=== PATIENT | male | born 1940 | race Caucasian/White ===

== ENCOUNTER 2017-10-07 20:30 | Outpatient (CLI) | payer MEDICARE | END 2017-10-07 20:31 | disposition home or self-care (01) | LOC: SLEEPLAB 20:30 | PROVIDERS: ATTEND Family Medicine | DX: G47.33 Obstructive sleep apnea (adult) (pediatric) (principal); I25.10 Atherosclerotic heart disease of native coronary artery without angina pectoris; I10 Essential (primary) hypertension | CPT/HCPCS: 95811 ==

== ENCOUNTER 2018-01-22 23:33 | Emergency (ER) | payer MEDICARE ==
[2018-01-22 23:54] LABS: #Basophils 0.1 thou/uL (0.0-0.2); #Eosinphils 0.3 thou/uL (0.0-0.7); #Lymphocytes 3.4 thou/uL (1.20-3.40); #Monocytes 1.3 thou/uL (0.11-0.59); #Neutrophils 3.8 thou/uL (1.40-6.50); %Basophils 1.2 % (0.0-1.0); %Eosinophils 2.8 % (0.0-10.0); %Lymphocytes 38.1 % (21.0-51.0); %Monocytes 14.5 % (0.0-10.0); %Neutrophils 43.4 % (42.0-75.0); Hemoglobin 16.1 g/dL (14.0-18.0); Mean Corpuscular HGB CONC 35.4 g/dL (32.0-36.0); Mean Corpuscular Hemoglobin 34.2 pg (27.0-31.0); Mean Corpuscular Volume 96.6 fl (80.0-94.0); Mean Platelet Volume 7.5 fL (7.4-10.4); Platelet Count 170 thou/uL (130-400); RBC Distribution Width 11.6 % (11.5-14.5); Red Blood Cell (RBC) Count 4.73 mill/uL (4.70-6.10); White Blood Cell (WBC) Count 8.9 thou/uL (4.8-10.8)
[2018-01-23] MEDS ORDERED: Morphine 4 MG/ML VIAL ONE (00:13)
[2018-01-23 00:20] LABS: ALT (SGPT) 23 U/L (8-55); AST (SGOT) 27 U/L (5-34); Albumin 4.4 g/dL (3.4-4.8); Alkaline Phosphatase 64 U/L (40-150); Anion Gap 18 mmol/L (10-20); BUN (Urea Nitrogen) 37 mg/dL (8.4-25.7); CK (CPK) 306 U/L (30-200); Calc. Creatinine Clearance 0 mL/min (70-130); Calcium 9.8 mg/dL (7.8-10.44); Carbon Dioxide 23 mmol/L (23-31); Chloride 105 mmol/L (98-107); Estimated GFR-MDRD 41; Globulin 3.2 g/dL (2.4-3.5); Glucose 111 mg/dL (83-110); Protein, Total 7.6 g/dL (5.8-8.1); Sodium 142 mmol/L (136-145)
[2018-01-23 00:44] LABS: PTT 24.7 SEC (22.9-36.1); Prothrombin Time 12.8 SEC (12.0-14.7)
[2018-01-23 00:52] LABS: Troponin I Less than 0.010 ng/mL (< 0.028)
[2018-01-23 01:11] LABS: CKMB 7.7 ng/mL (0-6.6)
[2018-01-23] MEDS ORDERED: Lidocaine 2% Viscous Solution 10 ML, Aluminum & Magnesium Hydroxide 20 ML, Donnatal Eli... SSW SCH ×3 (02:00)
[2018-01-23] MEDS ORDERED: Metoclopramide HCl 10 MG/2 ML VIAL ONE (02:01)
--- NOTE | 2018-01-23 10:49 | CT ---
PRELIMINARY REPORT/[facility]/EMERGENTY AFTER-HOURS PROCEDURE CT Angiography Chest With Intravenous Contrast CLINICAL HISTORY: 77 years old, male; Chest pain; Abd pain; Epigastric pain that started earlier today; ER 5; also SOB, increased pain when lying down and after eating. tender to the RUQ and LUQ TECHNIQUE: Axial computed tomographic angiography images of the chest with intravenous contrast using pulmonary embolism protocol. Coronal reformatted images were created and reviewed. COMPARISON: No relevant prior studies available. FINDINGS: Pulmonary arteries: No evidence of pulmonary embolism. Aorta: 3.7 cm aneurysmal dilatation of the ascending thoracic aorta. No aortic dissection. Lungs: No alveolar infiltrate. Right basilar and inferior lingular linear parenchymal scarring or sub segmental collapse / atelectasis. No mass. Pleural space: No pleural fluid collection. No pneumothorax. Heart: No pericardial effusion. No evidence of RV dysfunction. Bones/joints: Prior surgery of the lower cervical spine. Prior median sternotomy. Spinal degenerative changes. No acute fracture. No dislocation. Soft tissues: Unremarkable. Lymph nodes: No pathologically enlarged lymph nodes. IMPRESSION: 1. 3.7 cm aneurysmal dilatation of the ascending thoracic aorta. No aortic dissection. 2. No evidence of pulmonary embolism. 3. No alveolar infiltrate. 4. Right basilar and inferior lingular linear parenchymal scarring or subsegmental collapse/atelectas is. EXAM: CT Angiography Abdomen With Intravenous Contrast CLINICAL HISTORY: 77 years old, male; Chest pain; Abd pain; Epigastric pain that started earlier today; ER 5; also SOB, increased pain when lying down and after eating. tender to the RUQ and LUQ TECHNIQUE: Axial computed tomographic angiography images of the abdomen with intravenous contrast. Coronal refor matted images were created and reviewed. COMPARISON: No relevant prior studies available. FINDINGS: Aorta: The abdominal aorta is normal in caliber without aneurysm or dissection. Celiac trunk and mesenteric arteries: No acute findings. No occlusion or significant stenosis. Renal arteries: No acute findings. No occlusion or significant stenosis. Lung bases: Unremarkable. No mass. No consolidation. Liver: Unremarkable. No mass. Gallbladder and bile ducts: Cholelithiasis, otherwise normal gallbladder. No ductal dilation. Pancreas: Pancreatic fatty infiltration. No ductal dilation. Spleen: Unremarkable. No splenomegaly. Adrenals: Unremarkable. No mass. Kidneys and ureters: No hydronephrosis. Bilateral nonobstructing calcified renal stones. Bilateral re nal cysts. Stomach and bowel: Scattered colon diverticuli without evidence of diverticulitis. No obstruction. Appendix: Normal appendix. Intraperitoneal space: Unremarkable. No significant fluid collection. No free air. Bones/joints: Spinal degenerative changes. No acute fracture. No dislocation. Soft tissues: Unremarkable. No mass. Lymph nodes: Unremarkable. No enlarged lymph nodes. IMPRESSION: 1. The abdominal aorta is normal in caliber without aneurysm or dissection. 2. No hydronephrosis. Bilateral nonobstructing calcified renal stones. 3. Cholelithiasis, otherwise normal gallbladder. 4. Scattered colon diverticuli without evidence of diverticulitis. Thank you for allowing us to participate in the care of your patient. Dictated and Authenticated by: Higinio Posada MD 01/23/2018 1:16 AM Central Time ([place] & [place]) FINAL REPORT EMERGENCY AFTER HOURS STUDY CT ARTERIOGRAM CHEST WITH IV CONTRAST AND 3D MIP IMAGING CT ARTERIOGRAM ABDOMEN WITH IV CONTRAST AND 3D MIP IMAGING: Date: 01/23/18 Time: 0035 hours HISTORY: Chest and abdomen pain with radiation to back. FINDINGS: Findings agree with the preliminary report by Court[facility]. No evidence of aortic dissection. Ascending aorta is upper limits of normal in caliber. No CT evidence of pulmonary embolus. Cholelithiasis. Nonobstru cting bilateral renal calculi. Nonspecific low density nodule left thyroid lobe. POS: [facility]
--- NOTE | 2018-01-23 10:51 | RAD ---
CHEST 1 VIEW: Date: 01/22/18 HISTORY: Chest pain. Dyspnea. COMPARISON: 03/03/06. FINDINGS: Cardiac silhouette is magnified and upper limits of normal in size. Pulmonary vasculature is unremark able. Mediastinum is midline with postoperative changes and aortic calcification. No lobar consolidat ion or evidence of pneumothorax. Degenerative changes of the shoulders. shelter monitor leads overlie the chest. IMPRESSION: 1. Atherosclerosis. 2. No active cardiopulmonary abnormalities are otherwise demonstrated. POS: [facility]
== END 2018-01-23 03:20 | disposition home or self-care (01) ==
LOC: ERS 23:33
DX: K31.84 Gastroparesis (principal); I10 Essential (primary) hypertension; E78.00 Pure hypercholesterolemia, unspecified
CPT/HCPCS: 36415; 71045; 71275; 80053; 82550; 82553; 83690; 84484; 85025; 85610; 85730; 86850; 86900; 86901; 93005; 96361; 96374; 96375; J2270; J2765

== ENCOUNTER 2018-02-22 09:54 | Outpatient (CLI) | payer MEDICARE ==
[2018-02-22 12:00] LABS: #Basophils 0.1 thou/uL (0.0-0.2); #Eosinphils 0.4 thou/uL (0.0-0.7); #Lymphocytes 1.7 thou/uL (1.20-3.40); #Monocytes 0.9 thou/uL (0.11-0.59); %Eosinophils 5.3 % (0.0-10.0); %Lymphocytes 24.2 % (21.0-51.0); %Monocytes 12.2 % (0.0-10.0); %Neutrophils 57.2 % (42.0-75.0); Hemoglobin 14.3 g/dL (14.0-18.0); Mean Corpuscular HGB CONC 34.6 g/dL (32.0-36.0); Mean Corpuscular Hemoglobin 34.4 pg (27.0-31.0); Mean Corpuscular Volume 99.3 fl (80.0-94.0); Mean Platelet Volume 8.5 fL (7.4-10.4); Platelet Count 165 thou/uL (130-400); RBC Distribution Width 11.8 % (11.5-14.5); Red Blood Cell (RBC) Count 4.17 mill/uL (4.70-6.10)
[2018-02-22 12:23] LABS: ALT (SGPT) 17 U/L (8-55); AST (SGOT) 15 U/L (5-34); Albumin 3.8 g/dL (3.4-4.8); Alkaline Phosphatase 67 U/L (40-150); Anion Gap 9 mmol/L (10-20); BUN (Urea Nitrogen) 21 mg/dL (8.4-25.7); Bilirubin, Direct 0.3 mg/dL (0.1-0.3); Bilirubin, Total 0.9 mg/dL (0.2-1.2); Calc. Creatinine Clearance 0 mL/min (70-130); Calcium 8.9 mg/dL (7.8-10.44); Carbon Dioxide 26 mmol/L (23-31); Chloride 108 mmol/L (98-107); Estimated GFR-MDRD 49; Glucose 90 mg/dL (83-110); Potassium 4.2 mmol/L (3.5-5.1); Protein, Total 6.8 g/dL (5.8-8.1); Sodium 139 mmol/L (136-145)
--- NOTE | 2018-02-23 14:30 | EKG ---
Test Reason : Blood Pressure : / mmHG Vent. 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 Arlette TURCIOS ([id number]) on 02/23/2018 2:30:34 PM Referred By: SAMANTHA Confirmed By:DR. Arlette TURCIOS
== END 2018-02-22 09:55 | disposition home or self-care (01) ==
LOC: LABBT 09:54
PROVIDERS: ATTEND Surgery
DX: Z01.818 Encounter for other preprocedural examination (principal); K80.20 Calculus of gallbladder without cholecystitis without obstruction; I44.0 Atrioventricular block, first degree; R94.31 Abnormal electrocardiogram [ECG] [EKG]; I25.2 Old myocardial infarction
CPT/HCPCS: 80053; 80076; 85025; 93005; 93010

== ENCOUNTER 2018-02-24 06:01 | Day surgery (SDC) | payer MEDICARE ==
[2018-02-22 10:21] VITALS: BMI 27.4
[2018-02-24] MEDS ORDERED: HYDROmorphone 0.5 MG/0.5 ML SYRINGE ONE (06:35)
[2018-02-24] MEDS ORDERED: Fentanyl 100 MCG/2 ML VIAL ONE (06:35)
[2018-02-24] MEDS ORDERED: Metoclopramide HCl 10 MG/2 ML VIAL ONE ×2 (06:36→14:40)
[2018-02-24] MEDS ORDERED: Ondansetron HCl/PF 4 MG/2 ML Vial ONE ×2 (06:36→14:40)
[2018-02-24] MEDS ORDERED: Bupivacaine/Epinephrine 0.25% 30 ML VIAL ONE (06:44)
[2018-02-24] MEDS ORDERED: cefOXitin 2 GM, Syringe 1 ML in Sterile Water 10 ML SLOW IVP SCH (07:00)
--- NOTE | 2018-02-24 09:28 | OP ---
PREOPERATIVE DIAGNOSIS: Symptomatic cholelithiasis. SURGEON: Mekhi Sutton M.D. PROCEDURE PERFORMED: Laparoscopic cholecystectomy. INDICATIONS: A 77-year-old male who has been having episodic right upper quadrant pain radiating to the back associated with nausea. Ultrasound showed cholelithiasis. FINDINGS: He had severe inflammation of the gallbladder. The gallbladder was necrotic. There was a cute and chronic inflammation. PROCEDURE IN DETAIL: After informed consent was obtained, the patient was taken to the operating brynn m and given general endotracheal anesthesia. He was placed in the supine position. His abdomen was prepped and draped in usual fashion. Local anesthesia infiltrated subcutaneously and deep. A subumb ilical incision was performed. The subcu divided sharply. Fascia grasped and two stay sutures of 0 Vicryl placed to either side of midline. Midline incised. Digital palpation revealed no local adhes ions. A blunt 10-12 mm trocar inserted. Pneumoperitoneum was created to a pressure of 15 mmHg. Zer o-degree laparoscope inserted under direct vision, three 5 mm ports placed subcostally. The gallblad emerald was encased in omentum and appeared to have been inflamed and is able to reflect some of that ome ntum back to see the top of the gallbladder. It was very firm and thickened, could not be grasped wi th a regular grasper and had to use the tooth grabber to grab it. Then very carefully this inflamed omentum was taken down utilizing blunt and sharp dissection with electrocautery. Eventually, was abl e to dissect out the gallbladder completely including the duct and artery. However, the cystic duct was necrotic and it just completely broke just reflecting the gallbladder. I was able to dissect out the cystic duct distally to put two clips on it. The artery was also dissected out and triply ligat ed with Hemoclips and divided. The gallbladder was removed from its fossa utilizing electrocautery. It was placed in an endosac and removed from the abdomen in the Endosac. Hemostasis achieved with e lectrocautery as well as Mimi powder. Trocars and retractors removed. The fascia closed with 0 Vi cryl suture. The skin closed with interrupted 4-0 Rapide. Dermabond applied. The patient tolerated the procedure well and was transferred to recovery in good condition. Sponge and needle count verif ied correct x2.
[2018-02-24] MEDS ORDERED: ePHEDrine/0.9% NaCl/PF SYRINGE 50 mg/10 ml ONE (14:40)
[2018-02-24] MEDS ORDERED: Lidocaine 1% PF 5 ML VIAL ONE (14:40)
[2018-02-24] MEDS ORDERED: Succinylcholine Chloride 20 MG/ML 10 ml SYRINGE FS ONE (14:40)
[2018-02-24] MEDS ORDERED: Ketorolac Tromethamine 30 MG/ML VIAL ONE (14:40)
[2018-02-24] MEDS ORDERED: PROPOFOL 200 MG/20 ML VIAL ONE (14:40)
[2018-02-24] MEDS ORDERED: Glycopyrrolate 0.2 MG/ML 5 ML SYRINGE ONE (14:40)
[2018-02-24] MEDS ORDERED: Dexamethasone 20 MG/5 ML VIAL ONE (14:40)
== END 2018-02-24 13:30 | disposition home or self-care (01) ==
LOC: SDC 06:01
PROVIDERS: ATTEND Surgery
PROC: 0FT44ZZ Resection of Gallbladder, Percutaneous Endoscopic Approach (ICD-10-PCS; principal; 2018-02-24)
DX: K80.12 Calculus of gallbladder with acute and chronic cholecystitis without obstruction (principal); E78.5 Hyperlipidemia, unspecified; I10 Essential (primary) hypertension; F41.9 Anxiety disorder, unspecified; M19.90 Unspecified osteoarthritis, unspecified site; G25.81 Restless legs syndrome; G47.33 Obstructive sleep apnea (adult) (pediatric); Z87.891 Personal history of nicotine dependence; Z79.82 Long term (current) use of aspirin; Z79.1 Long term (current) use of non-steroidal anti-inflammatories (NSAID); Z79.899 Other long term (current) drug therapy; Z99.89 Dependence on other enabling machines and devices
CPT/HCPCS: 88304; A4216; J0131; J0694; J1100; J1170; J1885; J2001; J2405; J2704; J2765; J3010

== ENCOUNTER 2018-11-25 07:20 | Day surgery (SDC) | payer MEDICARE ==
[2018-11-24 15:54] VITALS: BMI 28.3
[~2018-11-25 07:20] MED LIST: Fluorouracil 100 MG, Enoxaparin Sodium 25 MG, EPINEPHrine 0.3 MG in Ophthalmic Irrigati... IVPB SCH
[2018-11-25] MEDS ORDERED: Phenylephrine 2.5% Ophth Soln 5 ML BOT ONE (07:34)
[2018-11-25] MEDS ORDERED: Cyclopentolate 1% Opth Drop 2 ML BOT ONE (07:35)
[2018-11-25] MEDS ORDERED: Midazolam HCl 2 mg/2 ml Vial ONE (08:06)
[2018-11-25] MEDS ORDERED: Fentanyl 100 MCG/2 ML VIAL ONE (08:06)
[2018-11-25] MEDS ORDERED: Lidocaine 1% PF 5 ML VIAL ONE (13:11)
[2018-11-25] MEDS ORDERED: Maxitrol 0.1% Opth Oint 3.5 GM TUBE ONE (13:11)
[2018-11-25] MEDS ORDERED: Bupivacaine 0.75% 10 ML AMP ONE (13:11)
[2018-11-25] MEDS ORDERED: Triamcinolone 40 MG/ML VIAL ONE (13:11)
[2018-11-25] MEDS ORDERED: Lidocaine 4% PF 5 ML AMP ONE (13:11)
[2018-11-25] MEDS ORDERED: PROPOFOL 200 MG/20 ML VIAL ONE (13:11)
[2018-11-25] MEDS ORDERED: CEFAZOLIN 1 GM VIAL ONE (13:11)
--- NOTE | 2018-11-25 17:11 | OP ---
DATE OF PROCEDURE: 11/25/2018 PREOPERATIVE DIAGNOSIS: Macular hole, left eye. POSTOPERATIVE DIAGNOSIS: Macular hole, left eye. PROCEDURES PERFORMED: Pars plana vitrectomy and membrane peel, left eye. ANESTHESIA: Local with monitored anesthesia care. DESCRIPTION OF PROCEDURE: The patient was identified in the preoperative holding area. Appropriate informed consent for the planned surgical procedure on the left eye had been obtained. The patient was transported to the operative suite, where appropriate cardiopulmonary monitoring was established. Local anesthesia was obtained using retrobulbar modified Van Lint lid block using 50:50 mixture of 4% lidocaine and 0.75% bupivacaine. The patient was prepped and draped in usual sterile manner for ophthalmic surgery on the left eye. Lid speculum was placed in left eye. A 25-gauge trocar was placed through the conjunctiva and sclera superotemporally, inferotemporally, and supranasally. Infusion line was placed inferotemporally. Light pipe vitreous cutter was inserted into the eye. Core vitrectomy was performed. Posterior hyaloid face was elevated and peeled across the macula using was relieved by this peeling action. Indirect ophthalmoscopy was used to exam the retina 360 degrees. No holes, breaks, or tears were identified. Complete air-fluid exchange was performed with 10 minutes being left for fluid to drain posteriorly. 28% sulfur hexafluoride gas was infused into the eye. Trocars were removed. The eye was noted to retain pressure well. Retrobulbar Kenalog and subconjunctival Ancef were placed. Atropine antibiotic ointment was placed and the eye was patched and shielded. The patient was taken to the postoperative recovery unit in good condition, having suffered no immediate perioperative complications. The patient was instructed to keep the patch and shield on, avoid lifting or bending, avoid flat and back positioning. Followup in the morning with Dr. Jerez. Job ID: [id number]
== END 2018-11-25 11:11 | disposition home or self-care (01) ==
LOC: SDC 07:20
PROVIDERS: ATTEND Ophthalmology Retina Specialist
PROC: 08T53ZZ Resection of Left Vitreous, Percutaneous Approach (ICD-10-PCS; principal; 2018-11-25)
PROC: 08NF3ZZ Release Left Retina, Percutaneous Approach (ICD-10-PCS; 2018-11-25)
DX: H35.342 Macular cyst, hole, or pseudohole, left eye (principal); Z79.1 Long term (current) use of non-steroidal anti-inflammatories (NSAID); Z79.82 Long term (current) use of aspirin; Z79.899 Other long term (current) drug therapy; Z95.5 Presence of coronary angioplasty implant and graft
CPT/HCPCS: 67025; J0171; J0690; J1650; J2001; J2250; J2704; J3010; J3301; J3490; J9190

== ENCOUNTER 2019-05-19 11:12 | Emergency (ER) | payer MEDICARE ==
[2019-05-19] MEDS ORDERED: Morphine 4 MG/ML VIAL ONE (12:06)
[2019-05-19 12:29] LABS: #Basophils 0.1 thou/uL (0.0-0.2); #Eosinphils 0.3 thou/uL (0.0-0.7); #Lymphocytes 2.3 thou/uL (1.20-3.40); #Monocytes 1.1 thou/uL (0.11-0.59); #Neutrophils 7.4 thou/uL (1.40-6.50); %Basophils 0.6 % (0.0-1.0); %Eosinophils 2.8 % (0.0-10.0); %Lymphocytes 20.5 % (21.0-51.0); %Neutrophils 66.1 % (42.0-75.0); Hemoglobin 15.8 g/dL (14.0-18.0); Mean Corpuscular HGB CONC 33.3 g/dL (32.0-36.0); Mean Corpuscular Hemoglobin 33.1 pg (27.0-31.0); Mean Corpuscular Volume 99.2 fL (78.0-98.0); Mean Platelet Volume 8.2 fL (7.4-10.4); Platelet Count 216 thou/uL (130-400); RBC Distribution Width 11.8 % (11.5-14.5); Red Blood Cell (RBC) Count 4.78 mill/uL (4.70-6.10); White Blood Cell (WBC) Count 11.2 thou/uL (4.8-10.8)
[2019-05-19 12:50] LABS: ALT (SGPT) 16 U/L (8-55); AST (SGOT) 13 U/L (5-34); Albumin 4.1 g/dL (3.4-4.8); Alkaline Phosphatase 71 U/L (40-150); Anion Gap 12 mmol/L (10-20); BUN (Urea Nitrogen) 27 mg/dL (8.4-25.7); Calc. Creatinine Clearance 0 mL/min (70-130); Calcium 9.9 mg/dL (7.8-10.44); Carbon Dioxide 28 mmol/L (23-31); Chloride 102 mmol/L (98-107); Estimated GFR-MDRD 58; Globulin 3.2 g/dL (2.4-3.5); Glucose 124 mg/dL (83-110); Lipase 16 U/L (8-78); Protein, Total 7.3 g/dL (5.8-8.1); Sodium 138 mmol/L (136-145)
--- NOTE | 2019-05-19 13:26 | CT ---
Exam: Chest, abdomen, and pelvic CT scan with IV contrast: HISTORY: Injury from trauma There are some increased linear and interstitial markings in the posterior inferior lung bases probab ly representing some chronic interstitial disease as well as some dependent positioning. No evidence of pneumothorax or pleural effusion. No pericardial effusion. No evidence for an overt acute rib fracture. Status post cholecystectomy without significant ductal dilatation. Pancreas, spleen, adrenal glands a re unremarkable. Very small hiatal hernia. Numerous bilateral renal calculi. Bilateral renal cysts. Nonobstructing 0.3 cm diameter right ureteral calculus overlying the right sacral alar region at appr oximately the level of S1. Somewhat fatty left spermatic cord. Urinary bladder appears unremarkable. No evidence for large or small bowel obstruction. No CT evidence for acute appendicitis . Minimal sigmoid colon diverticulosis without acute diverticulitis. IMPRESSION: Nonobstructing 0.3 cm right ureteral calculus at approximately the S1 level. Numerous bilateral nonobstructing renal calculi. Bilateral renal cysts. Small hiatal hernia. Multilevel lumbar spinal stenosis. Minimal posterior pleural thickening as well as some interstitial and linear parenchymal changes in t he posterior lower lung zones, evidence for chronic change. Other findings as above.
[2019-05-19 14:10] LABS: Bilirubin Negative (Negative); Blood, Urine Negative (Negative); Clarity Clear (Clear); Glucose, Urine (Dipstick) Normal (Negative); Leukocyte Negative Leu/uL (Negative); Nitrite Negative (Negative); Protein, Urine (Dipstick) 10 mg/dL (Neg-Trace); Urobilinogen Normal mg/dL (Less than 2)
== END 2019-05-19 14:35 | disposition home or self-care (01) ==
LOC: ERS 11:12
DX: N20.1 Calculus of ureter (principal); E78.5 Hyperlipidemia, unspecified; I10 Essential (primary) hypertension; Z79.899 Other long term (current) drug therapy
CPT/HCPCS: 71260; 74177; 80053; 81003; 83690; 85025; 87086; 96374; J2270

== ENCOUNTER 2020-03-27 06:39 | Outpatient (CLI) | payer MEDICARE, OTHER ==
[2020-03-28 18:04] LABS: SARS-CoV-2 MS2 Positive; SARS-CoV-2 N Gene Negative; SARS-CoV-2 S Gene Negative; SARS-CoV-2 orf1ab Negative
== END 2020-03-27 06:40 | disposition home or self-care (01) ==
LOC: LABBT 06:39
PROVIDERS: ATTEND Ophthalmology Retina Specialist
DX: Z01.812 Encounter for preprocedural laboratory examination (principal); Z11.59 Encounter for screening for other viral diseases; H35.341 Macular cyst, hole, or pseudohole, right eye
CPT/HCPCS: 87635; U0003

== ENCOUNTER 2020-03-29 07:26 | Day surgery (SDC) | payer MEDICARE ==
[2020-03-26 11:20] VITALS: BMI 26.6
[~2020-03-29 07:26] MED LIST changes: +Fentanyl 100 MCG/2 ML VIAL ONE; +Fluorouracil 100 MG, Enoxaparin Sodium 25 MG, EPINEPHrine 0.3 MG in Ophthalmic Irrigati... IRR SCH; -Fluorouracil 100 MG, Enoxaparin Sodium 25 MG, EPINEPHrine 0.3 MG in Ophthalmic Irrigati... IVPB SCH; +Midazolam HCl 2 mg/2 ml Vial ONE
[2020-03-29] MEDS ORDERED: Phenylephrine 2.5% Ophth Soln 5 ML BOT ONE (08:21)
[2020-03-29] MEDS ORDERED: Cyclopentolate 1% Opth Drop 2 ML BOT ONE (08:21)
[2020-03-29] MEDS ORDERED: Lidocaine 4% PF 5 ML AMP ONE (11:27)
[2020-03-29] MEDS ORDERED: Lidocaine 1% PF 5 ML VIAL ONE (11:27)
[2020-03-29] MEDS ORDERED: Tobramycin/Dexamethasone Ophth Oint 3.5 GM TUBE ONE (11:27)
[2020-03-29] MEDS ORDERED: Indocyanine Green 25 MG/10 ML VIAL ONE (11:27)
[2020-03-29] MEDS ORDERED: Bupivacaine PF 0.75% SDV 10 ML ONE (11:27)
[2020-03-29] MEDS ORDERED: Triamcinolone 40 MG/ML VIAL ONE (11:27)
[2020-03-29] MEDS ORDERED: PROPOFOL 200 MG/20 ML VIAL ONE (11:27)
[2020-03-29] MEDS ORDERED: CEFAZOLIN 1 GM VIAL ONE (11:27)
--- NOTE | 2020-03-30 13:02 | OP ---
DATE OF PROCEDURE: 03/29/2020 PREOPERATIVE DIAGNOSIS: Macular hole, right eye. POSTOPERATIVE DIAGNOSIS: Macular hole, right eye. PROCEDURE PERFORMED: Pars plana vitrectomy, internal limiting membrane peel, right eye. ANESTHESIA: Local with monitored anesthesia care. DESCRIPTION OF PROCEDURE: The patient was identified in the preoperative holding area. Appropriate informed consent for the planned surgical procedure on the right eye had been obtained. The patient was transported to the operative suite. Appropriate cardiopulmonary monitoring was established. Local anesthesia obtained using retrobulbar modified Van Lint lid block using 50:50 mixture of 4% lidocaine and 0.75% bupivacaine. The patient was prepped and draped in usual sterile manner for ophthalmic surgery in the right eye. Lid speculum was placed in the right eye. A 25-gauge trocar was placed in conjunctiva and sclera supratemporally, inferotemporally, supranasally. Infusion line was placed inferotemporally. Light pipe vitreous cutter inserted into the eye. Core vitrectomy was performed. Indocyanine green dye was infused into the posterior pole x1, identifying the internal limiting membrane. This was elevated using membrane scraper and peeled across the macula using end-gripping forceps. Complete air-fluid exchange was performed and 10 minutes being left for fluid to drain posteriorly. Indirect ophthalmoscopy was used to exam the retina 360 degrees. No holes, breaks, or tears were identified. Prophylactic laser was placed behind the sclerotomy sites. 28% sulfur hexafluoride gas was infused into the eye. Trocars were removed and eye was noted to retain pressure well. Retrobulbar Kenalog and sequential Ancef were placed. Antibiotic ointment was placed. Eye was patched and shielded. The patient was awakened, taken to postoperative recovery unit in good condition, having suffered no immediate perioperative complications. The patient was instructed to keep patch and shield on, avoid lifting or bending, avoid flat on back positioning. Follow up in the morning with Dr. Jerez. Job ID: [id number]
== END 2020-03-29 12:03 | disposition home or self-care (01) ==
LOC: SDC 07:26
PROVIDERS: ATTEND Ophthalmology Retina Specialist
PROC: 08T43ZZ Resection of Right Vitreous, Percutaneous Approach (ICD-10-PCS; principal; 2020-03-29)
PROC: 08NE3ZZ Release Right Retina, Percutaneous Approach (ICD-10-PCS; 2020-03-29)
DX: H35.341 Macular cyst, hole, or pseudohole, right eye (principal); Z79.899 Other long term (current) drug therapy; Z95.1 Presence of aortocoronary bypass graft
CPT/HCPCS: 67025; J0171; J0690; J1650; J2001; J2250; J2704; J3010; J3301; J3490; J9190